=== PATIENT | male | born 1965 ===

== ENCOUNTER 2024-09-24 12:24 | Day surgery (SDC) | payer OTHER ==
[2024-09-22 10:22] VITALS: BMI 27.0
[2024-09-24] MEDS ORDERED: PROPOFOL 60 ML ONE (12:27)
== END 2024-09-24 12:30 | disposition home or self-care (01) ==
LOC: CSHSDC 12:24
PROVIDERS: ATTEND Surgery
PROC: 0DJD8ZZ Inspection of Lower Intestinal Tract, Via Natural or Artificial Opening Endoscopic (ICD-10-PCS; principal; 2024-09-24)
DX: K64.4 Residual hemorrhoidal skin tags (principal); K21.00 Gastro-esophageal reflux disease with esophagitis, without bleeding; I10 Essential (primary) hypertension; Z88.8 Allergy status to other drugs, medicaments and biological substances; Z79.899 Other long term (current) drug therapy
CPT/HCPCS: J2704